=== PATIENT | male | born 1945 | race Caucasian/White ===

== ENCOUNTER 2018-02-16 07:48 | Inpatient (IN) | payer MEDICARE ==
[2018-02-11 11:01] LABS: CLARITY,URINE CLEAR (Clear); COLOR,URINE YELLOW (Yellow); GLUCOSE, URINE NEGATIVE (Neg); KETONES,URINE NEGATIVE (Neg); LEUKOCYTE ESTERASE ,URINE NEGATIVE (Neg); NITRITES, URINE NEGATIVE (Neg); OCCULT BLOOD,URINE NEGATIVE (Neg); PROTEIN,URINE NEGATIVE (Neg); UA COLLECTION TYPE NON-SPECIFIED; UROBILINOGEN,URINE 0.2 E.U/dL (0.2-1.0)
[2018-02-11 11:04] LABS: BASOPHILS % (AUTO) 0.5 % (0-1); EOSINOPHILS # (AUTO) 0.2 X10'3 (0-0.9); EOSINOPHILS % (AUTO) 2.5 % (0-6); LYMPHOCYTES # (AUTO) 2.5 X10'3 (1.1-4.8); LYMPHOCYTES % (AUTO) 25.9 % (21-51); MEAN CORPUSCULAR HEMOGLOBIN 30.8 PG (27.0-31.0); MEAN CORPUSCULAR HGB CONC 33.8 % (33.0-36.5); MEAN CORPUSCULAR VOLUME 90.9 FL (78-98); MEAN PLATELET VOLUME 7.6 FL (7.4-10.4); MONOCYTES # (AUTO) 0.9 X10'3 (0-0.9); MONOCYTES % (AUTO) 9.4 % (2-12); NEUTROPHILS % (AUTO) 61.7 % (42-75); PRE OP HEMATOCRIT 48.3 % (42.0-52.0); PRE OP HEMOGLOBIN 16.3 g/dL (14.0-17.9); PRE OP PLATELET COUNT 193 X10'3 (140-440); RED BLOOD COUNT 5.31 X10'6 (4.70-6.10); RED CELL DISTRIBUTION WIDTH 13.8 % (11.5-14.5)
[2018-02-11 11:16] LABS: PRE OP INR 0.9 INR; PRE OP PROTIME 9.6 SECONDS (9.0-12.0)
[2018-02-11 11:21] LABS: ALBUMIN 3.6 G/DL (3.4-5.0); ALBUMIN/GLOBULIN RATIO 0.9 (1.1-1.5); ALKALINE PHOSPHATASE 89 IU/L (46-116); BLOOD UREA NITROGEN 14 MG/DL (7-18); BUN/CREATININE RATIO 16.3 (5.4-32.0); CHLORIDE 103 MMOL/L (99-107); CREATININE 0.86 MG/DL (0.60-1.10); PRE OP ALT 57 U/L (30-65); PRE OP ANION GAP 12 (8-16); PRE OP AST 13 U/L (10-37); PRE OP BILIRUB, TOTAL 0.4 MG/DL (0.0-1.0); PRE OP GLUCOSE 104 MG/DL (70-104); PRE OP POTASSIUM 4.3 MMOL/L (3.4-5.1); PRE OP SODIUM 140 MMOL/L (135-145); TOTAL PROTEIN 7.4 G/DL (6.4-8.2); eGFR 88 ML/MIN
[2018-02-16] VITALS (16 sets, daily range): BP systolic 76–149; BP diastolic 42–85
[~2018-02-16] VITALS: Ht 177.8 cm; Wt 93.8 kg
[~2018-02-16 07:48] MED LIST: ASPI-1264 PO; ATEN-169 PO; DOCUMENT DATE & TIME OF BETA-BLOCKER PO ONE; MULT-1179 PO; SIMV20TA5 PO; cefazolin/dext.iso 2gm/100 ML IV ONE; famotidine 20mg tablet PO ONE; ringers solution, lacted 1,000 ML IV SCH
[2018-02-16] MEDS ORDERED: heparin 10,000 units/1 ML INJ ONE (09:23)
[2018-02-16] MEDS ORDERED: ceFAZolin 1000mg inj ONE (09:23)
[2018-02-16] MEDS ORDERED: iohexol 350MG/ML 100ml bottle IV ONE (10:17)
[2018-02-16] MEDS ORDERED: iohexol 350 MG/ML 50ML vial IV ONE (10:18)
[2018-02-16] MEDS ORDERED: LIDOcaine 1%/PF 5ML 10 MG/ML VIAL ONE (11:44)
[2018-02-16] MEDS ORDERED: iohexol 300mg/ml 100ml inj. ONE (11:44)
[2018-02-16] MEDS ORDERED: heparin 1,000 UNITS/NS 500ml 500 ML ONE (11:53)
[2018-02-16] MEDS ORDERED: midazolam 2 mg/2 ml injection ONE ×2 (11:53→13:50)
[2018-02-16] MEDS ORDERED: fentaNYL/PF 50MCG/1 ML 2ML syringe ONE ×2 (11:53→15:50)
[2018-02-16] MEDS ORDERED: propofol inj 20 ML IV ONE (13:50)
[2018-02-16] MEDS ORDERED: rocuronium 10mg/ml inj IV ONE (13:50)
[2018-02-16] MEDS ORDERED: fentaNYL /PF 50mcg/ml 5ml ampule ONE (13:50)
[2018-02-16] MEDS ORDERED: sevoflurane 250ml liquid IH ONE (13:53)
[2018-02-16] MEDS ORDERED: ringers solution, lacted 1,000 ML IV SCH (14:46)
[2018-02-16] MEDS ORDERED: morphine 4 MG/ML inj SYRINge IV PRN ×2 (14:50)
[2018-02-16] MEDS ORDERED: ondansetron/PF 4mg/2ml inj IV PRN ×2 (14:50→18:05)
[2018-02-16] MEDS ORDERED: labetalol 20mg/4ml (5mg/ml) syringe IV PRN (14:50)
[2018-02-16] MEDS ORDERED: proCHLORperazine 10 MG/2 ml inj IV PRN (14:50)
[2018-02-16] MEDS ORDERED: meperidine/PF 25mg/ml syringe IV PRN ×3 (14:50)
[2018-02-16] MEDS ORDERED: heparin 1,000unit/ml 10ml vial 10 ML ONE (15:49)
[2018-02-16] MEDS ORDERED: HYDROcodone/acetaminophen 10/325mg tab PO PRN (18:05)
[2018-02-16] MEDS ORDERED: diphenhydrAMINE 25mg capsule PO PRN (18:05)
[2018-02-16] MEDS: normal saline 1000ml 1,000 ML IV SCH (19:15)
[2018-02-16] MEDS: HYDROcodone/acetaminophen 5mg/325mg tablet PO PRN (20:47)
[2018-02-16 20:57] LABS: BASOPHILS # (AUTO) 0.1 X10'3 (0-0.2); BASOPHILS % (AUTO) 0.3 % (0-1); EOSINOPHILS # (AUTO) 0.4 X10'3 (0-0.9); EOSINOPHILS % (AUTO) 1.6 % (0-6); HEMATOCRIT 39.8 % (42.0-52.0); HEMOGLOBIN 13.3 g/dl (14.0-17.9); LYMPHOCYTES # (AUTO) 1.6 X10'3 (1.1-4.8); LYMPHOCYTES % (AUTO) 6.9 % (21-51); MEAN CORPUSCULAR HEMOGLOBIN 30.5 PG (27.0-31.0); MEAN CORPUSCULAR HGB CONC 33.5 % (33.0-36.5); MONOCYTES # (AUTO) 1.5 X10'3 (0-0.9); MONOCYTES % (AUTO) 6.3 % (2-12); NEUTROPHILS # (AUTO) 19.7 X10'3 (1.8-7.7); NEUTROPHILS % (AUTO) 84.9 % (42-75); PLATELET COUNT 204 X10'3 (140-440); RED BLOOD COUNT 4.37 X10'6 (4.70-6.10); RED CELL DISTRIBUTION WIDTH 13.7 % (11.5-14.5); WHITE BLOOD COUNT 23.3 X10'3 (4.5-11.0)
[2018-02-16 21:43] LABS: ALBUMIN 2.8 G/DL (3.4-5.0); ANION GAP 11 (8-16); BLOOD UREA NITROGEN 15 MG/DL (7-18); BUN/CREATININE RATIO 15.6 (5.4-32.0); CALCIUM 7.9 MG/DL (8.5-10.1); CHLORIDE 106 MMOL/L (99-107); CREATININE 0.96 MG/DL (0.60-1.10); GLUCOSE 134 MG/DL (70-104); MAGNESIUM 1.8 MG/DL (1.5-2.4); POTASSIUM 4.5 MMOL/L (3.5-5.1); SODIUM 140 MMOL/L (135-145); TOTAL CARBON DIOXIDE 23.4 MMOL/L (24-32); eGFR 77 ML/MIN
[2018-02-16] MEDS: atorvastatin 10mg tablet PO SCH (23:08)
[2018-02-17] VITALS (20 sets, daily range): BP systolic 89–169; BP diastolic 48–76
[2018-02-17] MEDS: HYDROcodone/acetaminophen 5mg/325mg tablet PO PRN ×4 (01:05→15:03)
[2018-02-17] MEDS: normal saline 1000ml 1,000 ML IV SCH ×2 (03:15→15:21)
[2018-02-17 03:43] LABS: BASOPHILS % (AUTO) 0.1 % (0-1); EOSINOPHILS # (AUTO) 0.2 X10'3 (0-0.9); EOSINOPHILS % (AUTO) 1.3 % (0-6); HEMATOCRIT 36.1 % (42.0-52.0); HEMOGLOBIN 12.1 g/dl (14.0-17.9); LYMPHOCYTES # (AUTO) 1.2 X10'3 (1.1-4.8); LYMPHOCYTES % (AUTO) 7.1 % (21-51); MEAN CORPUSCULAR HEMOGLOBIN 30.6 PG (27.0-31.0); MEAN CORPUSCULAR HGB CONC 33.5 % (33.0-36.5); MEAN CORPUSCULAR VOLUME 91.3 FL (78-98); MEAN PLATELET VOLUME 8.4 FL (7.4-10.4); MONOCYTES # (AUTO) 1.1 X10'3 (0-0.9); MONOCYTES % (AUTO) 6.3 % (2-12); NEUTROPHILS # (AUTO) 14.9 X10'3 (1.8-7.7); NEUTROPHILS % (AUTO) 85.2 % (42-75); PLATELET COUNT 194 X10'3 (140-440); RED BLOOD COUNT 3.96 X10'6 (4.70-6.10); RED CELL DISTRIBUTION WIDTH 13.6 % (11.5-14.5); WHITE BLOOD COUNT 17.5 X10'3 (4.5-11.0)
[2018-02-17] MEDS: multivitamins, therapeutics tablet PO SCH (08:00)
[2018-02-17] MEDS: atenolol 50mg tablet PO SCH (08:00)
[2018-02-17] MEDS: aspirin 81mg tablet.DR PO SCH (08:28)
[2018-02-17] MEDS: HYDROcodone/acetaminophen 10/325mg tab PO PRN (20:04)
[2018-02-17] MEDS: atorvastatin 10mg tablet PO SCH (21:24)
[2018-02-18] VITALS: BP 126/68
[2018-02-18] MEDS: HYDROcodone/acetaminophen 10/325mg tab PO PRN ×3 (03:04→11:36)
[2018-02-18] MEDS: normal saline 1000ml 1,000 ML IV SCH (05:33)
[2018-02-18] MEDS: atenolol 50mg tablet PO SCH (07:18)
[2018-02-18] MEDS: multivitamins, therapeutics tablet PO SCH (07:18)
[2018-02-18] MEDS: aspirin 81mg tablet.DR PO SCH (07:19)
[2018-02-18 07:50] VITALS: BP 129/65
[2018-02-18 11:00] VITALS: BP 129/60
== END 2018-02-18 11:50 | disposition home or self-care (01) | DRG 253 ==
LOC: PAS IN 07:48 → EDSTATUS 09:00 → CICU 2S 18:40 → SUR 3N 02-17 19:30
PROVIDERS: ADMIT Surgery; ATTEND Surgery
PROC: B42 Imaging, Lower Arteries, Computerized Tomography (CT Scan) (ICD-10-PCS; 2018-02-16)
PROC: 06BP0ZZ Excision of Right Saphenous Vein, Open Approach (ICD-10-PCS; 2018-02-16)
PROC: B41G1ZZ Fluoroscopy of Left Lower Extremity Arteries using Low Osmolar Contrast (ICD-10-PCS; 2018-02-16)
PROC: B41F1ZZ Fluoroscopy of Right Lower Extremity Arteries using Low Osmolar Contrast (ICD-10-PCS; 2018-02-16)
PROC: 041K09L Bypass Right Femoral Artery to Popliteal Artery with Autologous Venous Tissue, Open Approach (ICD-10-PCS; principal; 2018-02-16 13:53)
DX: I70.213 Atherosclerosis of native arteries of extremities with intermittent claudication, bilateral legs (principal); D62 Acute posthemorrhagic anemia; I71.4 Abdominal aortic aneurysm, without rupture; I10 Essential (primary) hypertension; I25.10 Atherosclerotic heart disease of native coronary artery without angina pectoris; Z95.5 Presence of coronary angioplasty implant and graft; Z87.891 Personal history of nicotine dependence; Z82.3 Family history of stroke; Z80.9 Family history of malignant neoplasm, unspecified
CPT/HCPCS: 36246; 36415; 71046; 75635; 75710; 75736; 76937; 80048; 80053; 81003; 83735; 85025; 85610; 85730; 86885; 86900; 86901; 86920; 87070; 93005; 93926; 93971; 99152; 99153; A7000; C1758; C1769; C1894; G0378; J0690; J1644; J2001; J2250; J2704; J3010; J7030; J7120; Q9967

== ENCOUNTER 2023-03-02 09:31 | Outpatient (CLI) | payer MEDICARE ==
[~2023-03-02 09:31] MED LIST changes: -DOCUMENT DATE & TIME OF BETA-BLOCKER PO ONE; +SIMV-42 PO; -SIMV20TA5 PO; -cefazolin/dext.iso 2gm/100 ML IV ONE; -famotidine 20mg tablet PO ONE; -ringers solution, lacted 1,000 ML IV SCH
[2023-03-02 11:21] LABS: ALBUMIN 2.9 G/DL (3.4-5.0); ANION GAP 7 (8-16); BLOOD UREA NITROGEN 11 MG/DL (7-18); BUN/CREATININE RATIO 8.9 (10.0-20.0); CALCIUM 9.6 MG/DL (8.5-10.1); CHLORIDE 102 MMOL/L (99-107); CREATININE 1.23 MG/DL (0.60-1.10); GLUCOSE 115 MG/DL (70-104); POTASSIUM 3.7 MMOL/L (3.5-5.1); SODIUM 138 MMOL/L (135-145); TOTAL CARBON DIOXIDE 28.7 MMOL/L (24-32); eGFR 57 ML/MIN
[2023-03-02] MEDS ORDERED: iohexol 350MG/ML 100ml bottle IV ONE (11:31)
[2023-03-02] MEDS ORDERED: iohexol 350 MG/ML 50ML vial IV ONE (11:31)
== END 2023-03-02 23:59 | disposition home or self-care (01) ==
LOC: RAD 09:31
PROVIDERS: ATTEND Internal Medicine Interventional Cardiology
DX: I70.213 Atherosclerosis of native arteries of extremities with intermittent claudication, bilateral legs (principal); I65.23 Occlusion and stenosis of bilateral carotid arteries; I71.40 Abdominal aortic aneurysm, without rupture, unspecified; I25.10 Atherosclerotic heart disease of native coronary artery without angina pectoris; M51.36 Other intervertebral disc degeneration, lumbar region; I10 Essential (primary) hypertension; K57.30 Diverticulosis of large intestine without perforation or abscess without bleeding
CPT/HCPCS: 36415; 75635; 80048; J3490; Q9967

== ENCOUNTER 2023-03-17 05:30 | Inpatient (IN) | payer MEDICARE ==
[2023-03-15 09:53] LABS: BASOPHILS # (AUTO) 0.1 X10'3 (0-0.2); BASOPHILS % (AUTO) 0.7 % (0-1); BILIRUBIN,URINE SMALL (Neg); CLARITY,URINE SLIGHTLY CLOUDY (Clear); COLOR,URINE YELLOW (Yellow); EOSINOPHILS # (AUTO) 0.1 X10'3 (0-0.9); EOSINOPHILS % (AUTO) 1.2 % (0-6); GLUCOSE, URINE NEGATIVE (Neg); KETONES,URINE TRACE mg/dl (Neg); LEUKOCYTE ESTERASE ,URINE NEGATIVE (Neg); LYMPHOCYTES # (AUTO) 1.4 X10'3 (1.1-4.8); LYMPHOCYTES % (AUTO) 12.8 % (21-51); MEAN CORPUSCULAR HEMOGLOBIN 27.9 PG (27.0-31.0); MEAN CORPUSCULAR HGB CONC 33.4 g/dL (33.0-36.5); MEAN CORPUSCULAR VOLUME 83.6 FL (78-98); MEAN PLATELET VOLUME 7.3 FL (7.4-10.4); MONOCYTES # (AUTO) 1.2 X10'3 (0-0.9); MONOCYTES % (AUTO) 11.7 % (2-12); NEUTROPHILS # (AUTO) 7.8 X10'3 (1.8-7.7); NEUTROPHILS % (AUTO) 73.6 % (42-75); NITRITES, URINE NEGATIVE (Neg); OCCULT BLOOD,URINE NEGATIVE (Neg); PH,URINE 5.5 (4.8-8.0); PRE OP HEMATOCRIT 38.6 % (42.0-52.0); PRE OP HEMOGLOBIN 12.9 g/dL (14.0-17.9); PRE OP PLATELET COUNT 238 X10'3 (140-440); PRE OP WHITE BLOOD COUNT 10.5 10'3 (4.8-10.8); PROTEIN,URINE TRACE mg/dl (Neg); RED BLOOD COUNT 4.62 X10'6 (4.70-6.10); RED CELL DISTRIBUTION WIDTH 14.7 % (11.5-14.5)
[2023-03-15 09:58] LABS: UA COLLECTION TYPE CLN CATCH MIDSTREAM
[2023-03-15 10:00] LABS: CAL OXALATE CRYSTALS 1+ /HPF (NEGATIVE)
[2023-03-15 10:01] LABS: BACTERIA,URINE NONE SEEN /HPF (Neg); MUCUS STRANDS MODERATE /LPF (Neg); RBC,URINE NONE SEEN /HPF (0-2); SQUAMOUS EPITHELIAL CELL,UR FEW /LPF (FEW); WBC,URINE 0-4 /HPF (0-4)
[2023-03-15 10:06] LABS: ALBUMIN 2.9 G/DL (3.4-5.0); ALBUMIN/GLOBULIN RATIO 0.7 (1.1-1.5); ALKALINE PHOSPHATASE 83 IU/L (46-116); BLOOD UREA NITROGEN 10 MG/DL (7-18); BUN/CREATININE RATIO 8.8 (10.0-20.0); CALCIUM 8.9 MG/DL (8.5-10.1); CHLORIDE 102 MMOL/L (99-107); CREATININE 1.13 MG/DL (0.60-1.10); PRE OP ALT 27 U/L (30-65); PRE OP ANION GAP 7 (8-16); PRE OP AST 15 U/L (10-37); PRE OP BILIRUB, TOTAL 0.4 MG/DL (0.0-1.0); PRE OP GLUCOSE 108 MG/DL (70-104); PRE OP SODIUM 137 MMOL/L (135-145); TOTAL CARBON DIOXIDE 27.9 MMOL/L (24-32); eGFR 63 ML/MIN
[2023-03-17] VITALS (23 sets, daily range): BP systolic 138–212; BP diastolic 63–106; PULSE 72–96; RESP 14–34; TEMP 97.1–98.9; O2SAT 72–100
[~2023-03-17] VITALS: Ht 177.8 cm; Wt 74.4 kg
[~2023-03-17 05:30] MED LIST changes: -ASPI-1264 PO; +CLOP75TA33 PO; +FINA5TAB11 PO; +MULT-1085 PO; -MULT-1179 PO; +RIVA20TA PO; -SIMV-42 PO; +TRAM50TA2 PO; +[UNRECOGNIZED DRUG - OTHER] PO; +famotidine 20mg tablet PO ONE; +ringers solution, lacted 1,000 ML IV SCH
--- NOTE | 2023-03-17 05:30 | NUR ---
BILATERAL PEDAL PULSES AND POSTERIOR TIBIAL PULSES DOPPLERED AND MARKED WITH SKIN MARKER WITH AN X.
[2023-03-17] MEDS ORDERED: cefazolin 2gm/D5W 100mL 100 ML IV ONE (06:00)
[2023-03-17] MEDS ORDERED: heparin 10,000 units/1 ML INJ ONE (06:58)
[2023-03-17] MEDS ORDERED: LIDOcaine 1% (10mg/ml)w/preservative inj. 20ml MDV ONE (07:00)
[2023-03-17] MEDS ORDERED: fentaNYL /PF 50mcg/ml 5ml ampule ONE ×2 (07:24→09:16)
[2023-03-17] MEDS ORDERED: midazolam 1 mg/ML 2ml injection ONE (07:24)
[2023-03-17] MEDS ORDERED: propofol inj 20 ML IV ONE (07:25)
[2023-03-17] MEDS ORDERED: rocuronium 10mg/ml inj IV ONE (07:29)
[2023-03-17] MEDS ORDERED: dexamethasone sod phosphate 10mg/ml inj ONE (07:52)
[2023-03-17] MEDS ORDERED: sevoflurane 250ml liquid IH ONE (07:52)
[2023-03-17] MEDS ORDERED: labetalol 20mg/4ml (5mg/ml) syringe IV ONE (07:52)
[2023-03-17] MEDS ORDERED: ondansetron/PF 4mg/2ml inj ONE (07:52)
[2023-03-17] MEDS ORDERED: LIDOcaine 2% jelly 6ml syringe ***for topical use only ONE (08:15)
[2023-03-17] MEDS ORDERED: ondansetron/PF 4mg/2ml inj IV PRN ×2 (09:20→13:45)
[2023-03-17] MEDS ORDERED: proCHLORperazine 10 MG/2 ml inj IV PRN (09:20)
[2023-03-17] MEDS ORDERED: ringers solution, lacted 1,000 ML IV SCH (09:20)
[2023-03-17] MEDS ORDERED: meperidine/PF 25mg/ml syringe IV PRN ×2 (09:20)
[2023-03-17] MEDS ORDERED: morphine 2 MG/ML inj. syringe IV PRN ×2 (09:20→13:45)
[2023-03-17] MEDS ORDERED: mupirocin 2% ointment 22GM ONE (10:59)
[2023-03-17] MEDS ORDERED: bacitracin 15gm ointment TP ONE (10:59)
--- NOTE | 2023-03-17 11:19 | NUR ---
Received from OR via BED, accompanied by Anesthesiologist DR SANCHEZ and report given by Anesthesiologist AND CIVIL ENGINEERING INTERN. PT DROWSY, DENIES PAIN. LEFT GROIN W/PREVENA DRSG CDI W/GREEN LIGHT ILLUMINATION, LEFT LEG W/2 MEDIAL ISLAND DRSG'S FROM THIGH TO LOWER CALF W/A FEW AREAS OF SCANT AMT OF SANGUINOUS DRAINAGE. PT PAINFUL, UNABLE TO DESCRIBE, 4 MG MORPHINE GIVEN, W/5 MG LABETALOL FOR ELEVATED BP. Addendum: 03/17/23 at 1145 by Sindy Hawkins RN Amended: Links added.
[2023-03-17] MEDS: morphine 4 MG/ML inj SYRINge IV PRN ×2 (11:26→11:47)
[2023-03-17] MEDS: labetalol 20mg/4ml (5mg/ml) syringe IV PRN ×3 (11:33→12:03)
[2023-03-17] MEDS ORDERED: hydrALAZINE 20mg/ml inj. IV ONE (12:03)
[2023-03-17] MEDS: hydrALAZINE 20mg/ml inj. IV PRN ×2 (12:05→12:24)
[2023-03-17] MEDS: meperidine/PF 25mg/ml syringe IV PRN ×2 (13:20→15:01)
[2023-03-17] MEDS ORDERED: magnesium hydroxide 30ml (MOM) UD suspension PO PRN (13:45)
[2023-03-17] MEDS ORDERED: magnesium 4gm in 100ml NS 100 ML IV PRN (13:45)
[2023-03-17] MEDS ORDERED: mag hydrox/Alum hydrox/simeth 30ml oral suspension PO PRN (13:45)
[2023-03-17] MEDS ORDERED: potassium Cl 20 mEq SR tablet PO PRN (13:45)
[2023-03-17] MEDS ORDERED: HYDROcodone/acetaminophen 5mg/325mg tablet PO PRN (13:45)
[2023-03-17] MEDS ORDERED: magnesium Cl slow-release 64mg tablet PO PRN (13:45)
[2023-03-17] MEDS ORDERED: magnesium 2GM in 50ml NS 50 ML IV PRN (13:45)
[2023-03-17] MEDS ORDERED: potassium Cl 40MEQ/1/2NS 520ml 520 ML IV PRN (13:45)
[2023-03-17] MEDS ORDERED: traMADol 50MG tablet PO PRN (14:00)
--- NOTE | 2023-03-17 16:19 | NUR ---
Report called to receiving nurse PT STATES HIS PAIN IS MUCH BETTER. GROIN SITE, DRSG'S REMAIN W/O ANY CHANGES. TIBIAL/PEDAL PULSES REMAINS 2+ DOPPLER W/BILAT FEET PWD, SUPERVISOR WOUND 1-2 SECONDS. Transferred via BED W/2 BAGS OF Belongings W/DENTURES IN PTS MOUTH ON TELE #5. Special Issues communicated to receiving nurse. YES. Addendum: 03/17/23 at 1637 by Sindy Hawkins RN Amended: Links added.
[2023-03-17] MEDS ORDERED: rivaroxaban 20mg tablet PO SCH (17:00)
[2023-03-17] MEDS: HYDROcodone/acetaminophen 10/325mg tab PO PRN ×2 (17:03→23:21)
[2023-03-17] MEDS: normal saline 1000ml 1,000 ML IV SCH (17:09)
--- NOTE | 2023-03-17 18:22 | NUR ---
Problems reprioritized. Patient report given, questions answered & plan of care reviewed with Kristie. Addendum: 03/17/23 at 1823 by Percy Lund RN Amended: Links added.
[2023-03-17] MEDS: K and/or MAG REPLACEMENT MC SCH (20:00)
[2023-03-17] MEDS: docusate sod 100mg capsule PO SCH (20:25)
[2023-03-17] MEDS: atenolol 50mg tablet PO SCH (20:25)
[2023-03-17] MEDS: morphine 2 MG/ML inj. syringe IV PRN (20:26)
[2023-03-18] VITALS (7 sets, daily range): BP systolic 119–176; BP diastolic 52–80; PULSE 58–82; RESP 12–22; TEMP 97.7–98.4; O2SAT 96–100
[2023-03-18] MEDS: HYDROcodone/acetaminophen 10/325mg tab PO PRN ×4 (04:51→14:40)
[2023-03-18] MEDS: normal saline 1000ml 1,000 ML IV SCH ×2 (04:52→14:36)
--- NOTE | 2023-03-18 06:38 | NUR ---
Problems reprioritized. Patient report given, questions answered & plan of care reviewed with Suzan BARRY. Pt stable at shift change.
[2023-03-18 07:03] LABS: BASOPHILS % (AUTO) 0.1 % (0-1); EOSINOPHILS % (AUTO) 0.2 % (0-6); HEMATOCRIT 31.6 % (42.0-52.0); HEMOGLOBIN 10.2 g/dl (14.0-17.9); LYMPHOCYTES # (AUTO) 1.5 X10'3 (1.1-4.8); LYMPHOCYTES % (AUTO) 11.8 % (21-51); MEAN CORPUSCULAR HEMOGLOBIN 27.3 PG (27.0-31.0); MEAN CORPUSCULAR HGB CONC 32.3 g/dL (33.0-36.5); MEAN CORPUSCULAR VOLUME 84.4 FL (78-98); MEAN PLATELET VOLUME 7.1 FL (7.4-10.4); MONOCYTES # (AUTO) 1.5 X10'3 (0-0.9); MONOCYTES % (AUTO) 11.8 % (2-12); NEUTROPHILS # (AUTO) 9.8 X10'3 (1.8-7.7); NEUTROPHILS % (AUTO) 76.1 % (42-75); PLATELET COUNT 200 X10'3 (140-440); RED BLOOD COUNT 3.75 X10'6 (4.70-6.10); RED CELL DISTRIBUTION WIDTH 14.7 % (11.5-14.5); WHITE BLOOD COUNT 12.9 X10'3 (4.5-11.0)
[2023-03-18 07:43] LABS: ALANINE AMINOTRANSFERASE 18 U/L (12-78); ALBUMIN 2.3 G/DL (3.4-5.0); ALBUMIN/GLOBULIN RATIO 0.7 (1.1-1.5); ALKALINE PHOSPHATASE 67 IU/L (46-116); ANION GAP 6 (8-16); ASPARTATE AMINO TRANSFERASE 9 U/L (10-37); BILIRUBIN,TOTAL 0.4 MG/DL (0.1-1.0); BLOOD UREA NITROGEN 11 MG/DL (7-18); BUN/CREATININE RATIO 10.8 (10.0-20.0); CALCIUM 8.5 MG/DL (8.5-10.1); CHLORIDE 103 MMOL/L (99-107); CREATININE 1.02 MG/DL (0.60-1.10); GLUCOSE 115 MG/DL (70-104); POTASSIUM 4.4 MMOL/L (3.5-5.1); SODIUM 135 MMOL/L (135-145); TOTAL CARBON DIOXIDE 25.8 MMOL/L (24-32); TOTAL PROTEIN 5.7 G/DL (6.4-8.2); eCRCL 64 ML/MIN; eGFR 71 ML/MIN
[2023-03-18] MEDS: K and/or MAG REPLACEMENT MC SCH ×2 (07:47→20:00)
[2023-03-18] MEDS ORDERED: [UNRECOGNIZED DRUG - OTHER] PO SCH (08:00)
[2023-03-18] MEDS: docusate sod 100mg capsule PO SCH ×2 (09:09→20:46)
[2023-03-18] MEDS: clopidogrel 75mg tablet PO SCH (09:09)
[2023-03-18] MEDS: multivitamins, therapeutics tablet PO SCH (09:09)
[2023-03-18] MEDS: finasteride 5mg tablet PO SCH (09:32)
[2023-03-18] MEDS: morphine 2 MG/ML inj. syringe IV PRN ×2 (16:30→20:48)
[2023-03-18] MEDS ORDERED: rivaroxaban 20mg tablet PO SCH (17:00)
--- NOTE | 2023-03-18 19:00 | NUR ---
Patient in room PCU 3025. I have received report from Suzan BARRY and had the opportunity to ask questions and assume patient care.
[2023-03-18] MEDS: atenolol 50mg tablet PO SCH (20:48)
[2023-03-19] MEDS: morphine 2 MG/ML inj. syringe IV PRN ×2 (00:58→08:19)
[2023-03-19] MEDS: normal saline 1000ml 1,000 ML IV SCH (01:02)
[2023-03-19] MEDS: acetaminophen 325mg tablet PO PRN ×2 (01:02→08:16)
[2023-03-19 02:00] VITALS: BP 148/69; PULSE 72; RESP 23; TEMP 98.5; O2SAT 96
[2023-03-19] MEDS: HYDROcodone/acetaminophen 10/325mg tab PO PRN (05:47)
--- NOTE | 2023-03-19 05:56 | NUR ---
D/c'd patients kam catheter per MD order at 0545. Patient tolerated procedure well, and now has a urinal at bedside.
[2023-03-19 06:00] VITALS: BP 152/83; PULSE 76; RESP 11; TEMP 97.7; O2SAT 95
--- NOTE | 2023-03-19 06:19 | NUR ---
Problems reprioritized. Patient report given, questions answered & plan of care reviewed with Suzan BARRY.
[2023-03-19] MEDS: K and/or MAG REPLACEMENT MC SCH (06:57)
[2023-03-19 07:27] LABS: BASOPHILS % (AUTO) 0.5 % (0-1); EOSINOPHILS # (AUTO) 0.1 X10'3 (0-0.9); EOSINOPHILS % (AUTO) 0.8 % (0-6); HEMATOCRIT 30.9 % (42.0-52.0); LYMPHOCYTES % (AUTO) 10.7 % (21-51); MEAN CORPUSCULAR HEMOGLOBIN 27.3 PG (27.0-31.0); MEAN CORPUSCULAR HGB CONC 32.5 g/dL (33.0-36.5); MEAN CORPUSCULAR VOLUME 83.9 FL (78-98); MEAN PLATELET VOLUME 7.2 FL (7.4-10.4); MONOCYTES # (AUTO) 1.2 X10'3 (0-0.9); MONOCYTES % (AUTO) 12.6 % (2-12); NEUTROPHILS # (AUTO) 7.3 X10'3 (1.8-7.7); NEUTROPHILS % (AUTO) 75.4 % (42-75); PLATELET COUNT 192 X10'3 (140-440); RED BLOOD COUNT 3.68 X10'6 (4.70-6.10); RED CELL DISTRIBUTION WIDTH 15.1 % (11.5-14.5); WHITE BLOOD COUNT 9.7 X10'3 (4.5-11.0)
[2023-03-19 07:47] LABS: ALANINE AMINOTRANSFERASE 16 U/L (12-78); ALBUMIN 2.2 G/DL (3.4-5.0); ALBUMIN/GLOBULIN RATIO 0.6 (1.1-1.5); ALKALINE PHOSPHATASE 66 IU/L (46-116); ANION GAP 7 (8-16); ASPARTATE AMINO TRANSFERASE 12 U/L (10-37); BILIRUBIN,TOTAL 0.4 MG/DL (0.1-1.0); BLOOD UREA NITROGEN 10 MG/DL (7-18); BUN/CREATININE RATIO 10.3 (10.0-20.0); CALCIUM 8.2 MG/DL (8.5-10.1); CHLORIDE 103 MMOL/L (99-107); CREATININE 0.97 MG/DL (0.60-1.10); GLUCOSE 107 MG/DL (70-104); MAGNESIUM 1.9 MG/DL (1.5-2.4); POTASSIUM 3.8 MMOL/L (3.5-5.1); SODIUM 135 MMOL/L (135-145); TOTAL CARBON DIOXIDE 25.4 MMOL/L (24-32); TOTAL PROTEIN 5.6 G/DL (6.4-8.2); eCRCL 67 ML/MIN; eGFR 75 ML/MIN
[2023-03-19] MEDS: docusate sod 100mg capsule PO SCH (08:00)
[2023-03-19] MEDS: clopidogrel 75mg tablet PO SCH (08:17)
[2023-03-19] MEDS: multivitamins, therapeutics tablet PO SCH (08:17)
[2023-03-19 11:00] VITALS: BP 176/82; PULSE 67; RESP 11; TEMP 97.4; O2SAT 98
[2023-03-19] MEDS ORDERED: oxyCODONE/APAP 5-325mg tablet PO PRN (11:30)
[2023-03-19] MEDS ORDERED: PER5325T PO (11:34)
[2023-03-19 12:07] VITALS: RESP 16
[2023-03-19] MEDS: finasteride 5mg tablet PO SCH (12:22)
--- NOTE | 2023-03-19 12:40 | NUR ---
Discharged to the care of family. Has written instructions and understands that his follow up appointment with Dr. Hester will be made for next week. Pain control instructions given. Abiola Cristobal has pain medications filled and available for black pickler. Dressings are intact. Stable for discharge.
== END 2023-03-19 12:42 | disposition home or self-care (01) | DRG 254 ==
LOC: PAS IN 05:30 → PCU 3S 16:23
PROVIDERS: ADMIT Surgery; ATTEND Surgery
PROC: 03CJ0ZZ Extirpation of Matter from Left Common Carotid Artery, Open Approach (ICD-10-PCS; 2023-03-17)
PROC: 04PY0DZ Removal of Intraluminal Device from Lower Artery, Open Approach (ICD-10-PCS; 2023-03-17)
PROC: 041L0JJ Bypass Left Femoral Artery to Left Femoral Artery with Synthetic Substitute, Open Approach (ICD-10-PCS; principal; 2023-03-17 07:52)
DX: I70.212 Atherosclerosis of native arteries of extremities with intermittent claudication, left leg (principal); F17.210 Nicotine dependence, cigarettes, uncomplicated; Z82.49 Family history of ischemic heart disease and other diseases of the circulatory system; Z80.9 Family history of malignant neoplasm, unspecified
CPT/HCPCS: 36415; 80053; 81001; 82948; 83735; 85025; 86885; 86900; 86901; 87070; 87075; 87081; 87102; A4615; A4618; A6258; A6449; A7000; C1758; C1768; J0360; J0690; J1100; J1644; J2175; J2250; J2270; J2405; J2704; J3010; J3490; J7030; J7040; J7120

== ENCOUNTER 2023-04-06 10:02 | Emergency (ER) | payer MEDICARE ==
[~2023-04-06] VITALS: Ht 177.8 cm; Wt 74.0 kg
[~2023-04-06 10:02] MED LIST changes: +PER5325T PO; -TRAM50TA2 PO; -famotidine 20mg tablet PO ONE; -ringers solution, lacted 1,000 ML IV SCH
[2023-04-06 10:55] LABS: ALANINE AMINOTRANSFERASE 47 U/L (12-78); ALBUMIN 2.6 G/DL (3.4-5.0); ALBUMIN/GLOBULIN RATIO 0.7 (1.1-1.5); ALKALINE PHOSPHATASE 105 IU/L (46-116); ANION GAP 8 (8-16); ASPARTATE AMINO TRANSFERASE 33 U/L (10-37); BILIRUBIN,TOTAL 0.6 MG/DL (0.1-1.0); BLOOD UREA NITROGEN 18 MG/DL (7-18); BUN/CREATININE RATIO 11.9 (10.0-20.0); CALCIUM 8.3 MG/DL (8.5-10.1); CHLORIDE 103 MMOL/L (99-107); CREATININE 1.51 MG/DL (0.60-1.10); GLUCOSE 149 MG/DL (70-104); POTASSIUM 3.5 MMOL/L (3.5-5.1); SODIUM 138 MMOL/L (135-145); TOTAL CARBON DIOXIDE 26.7 MMOL/L (24-32); TOTAL PROTEIN 6.5 G/DL (6.4-8.2); eCRCL 42 ML/MIN; eGFR 45 ML/MIN
[2023-04-06 10:58] LABS: BASOPHILS # (AUTO) 0.1 X10'3 (0-0.2); BASOPHILS % (AUTO) 0.6 % (0-1); EOSINOPHILS # (AUTO) 0.1 X10'3 (0-0.9); EOSINOPHILS % (AUTO) 1.5 % (0-6); HEMATOCRIT 29.1 % (42.0-52.0); HEMOGLOBIN 9.6 g/dl (14.0-17.9); LYMPHOCYTES % (AUTO) 9.6 % (21-51); MEAN CORPUSCULAR HEMOGLOBIN 27.5 PG (27.0-31.0); MEAN CORPUSCULAR HGB CONC 32.9 g/dL (33.0-36.5); MEAN CORPUSCULAR VOLUME 83.3 FL (78-98); MEAN PLATELET VOLUME 6.9 FL (7.4-10.4); MONOCYTES # (AUTO) 1.1 X10'3 (0-0.9); MONOCYTES % (AUTO) 10.7 % (2-12); NEUTROPHILS % (AUTO) 77.6 % (42-75); PLATELET COUNT 289 X10'3 (140-440); RED BLOOD COUNT 3.49 X10'6 (4.70-6.10); RED CELL DISTRIBUTION WIDTH 16.4 % (11.5-14.5); WHITE BLOOD COUNT 10.3 X10'3 (4.5-11.0)
[2023-04-06 11:03] LABS: PRO BRAIN NATRIURETIC PEPTIDE 2603 PG/ML (0-450)
[2023-04-06 14:04] VITALS: BP 130/67; PULSE 66; RESP 16; TEMP 97.5; O2SAT 95
== END 2023-04-06 14:08 | disposition home or self-care (01) ==
LOC: ER 10:03
DX: R55 Syncope and collapse (principal)
CPT/HCPCS: 36415; 71045; 80053; 83880; 84484; 85025; 93005; 99285; A4615

== ENCOUNTER 2023-05-25 14:51 | Inpatient (IN) | payer MEDICARE ==
[~2023-05-25] VITALS: Ht 177.8 cm; Wt 71.3 kg
[2023-05-25] MEDS ORDERED: ipratropium/albuterol 3ml nebule NEB STA (15:08)
[2023-05-25 15:48] LABS: BASOPHILS # (AUTO) 0.1 X10'3 (0-0.2); BASOPHILS % (AUTO) 0.9 % (0-1); EOSINOPHILS # (AUTO) 0.1 X10'3 (0-0.9); EOSINOPHILS % (AUTO) 1.4 % (0-6); LYMPHOCYTES # (AUTO) 1.3 X10'3 (1.1-4.8); LYMPHOCYTES % (AUTO) 21.6 % (21-51); MEAN CORPUSCULAR VOLUME 68.9 FL (78-98); MEAN PLATELET VOLUME 7.2 FL (7.4-10.4); MONOCYTES # (AUTO) 0.6 X10'3 (0-0.9); MONOCYTES % (AUTO) 10.5 % (2-12); NEUTROPHILS % (AUTO) 65.6 % (42-75); PLATELET COUNT 260 X10'3 (140-440); RED BLOOD COUNT 3.07 X10'6 (4.70-6.10); WHITE BLOOD COUNT 6.2 X10'3 (4.5-11.0)
[2023-05-25 15:52] LABS: HEMATOCRIT 21.2 % (42.0-52.0); HEMOGLOBIN 6.1 g/dl (14.0-17.9)
[2023-05-25 15:53] LABS: APTT 23 SECONDS (22-32); PROTHROMBIN TIME 11.1 SECONDS (9.0-12.0)
[2023-05-25 15:54] LABS: ALANINE AMINOTRANSFERASE 14 U/L (12-78); ALBUMIN 3.2 G/DL (3.4-5.0); ALBUMIN/GLOBULIN RATIO 0.9 (1.1-1.5); ALKALINE PHOSPHATASE 72 IU/L (46-116); ANION GAP 10 (8-16); ASPARTATE AMINO TRANSFERASE 8 U/L (10-37); BILIRUBIN,TOTAL 0.6 MG/DL (0.1-1.0); BLOOD UREA NITROGEN 16 MG/DL (7-18); BUN/CREATININE RATIO 15.8 (10.0-20.0); CALCIUM 8.5 MG/DL (8.5-10.1); CHLORIDE 106 MMOL/L (99-107); CREATININE 1.01 MG/DL (0.60-1.10); GLUCOSE 132 MG/DL (70-104); POTASSIUM 3.5 MMOL/L (3.5-5.1); SODIUM 139 MMOL/L (135-145); TOTAL CARBON DIOXIDE 23.1 MMOL/L (24-32); TOTAL PROTEIN 6.7 G/DL (6.4-8.2); eCRCL 63 ML/MIN; eGFR 72 ML/MIN
[2023-05-25 16:03] LABS: MAGNESIUM 2.3 MG/DL (1.5-2.4); PRO BRAIN NATRIURETIC PEPTIDE 5661 PG/ML (0-450)
[2023-05-25 16:58] LABS: PLATELET ESTIMATE NORMAL
[2023-05-25 17:10] LABS: ANISOCYTOSIS 3+; HYPOCHROMASIA 2+; MICROCYTOSIS 2+
[2023-05-25 17:22] LABS: POLYCHROMASIA FEW
[2023-05-25 17:23] LABS: SCHISTOCYTES FEW
[2023-05-25] MEDS ORDERED: pantoprazole 40mg IV 80 MG in normal saline 100ml IV soln 100 ML IV ONE (19:40)
[2023-05-25] MEDS ORDERED: pantoprazole 40MG/NS 100ML BAG 100 ML IV ONE (19:40)
[2023-05-25] MEDS ORDERED: pantoprazole 40 MG vial IV ONE (20:15)
[2023-05-25] MEDS ORDERED: ondansetron/PF 4mg/2ml inj IV PRN (20:20)
[2023-05-25] MEDS ORDERED: magnesium Cl slow-release 64mg tablet PO PRN (20:20)
[2023-05-25] MEDS ORDERED: mag hydrox/Alum hydrox/simeth 30ml oral suspension PO PRN (20:20)
[2023-05-25] MEDS ORDERED: potassium Cl 20 mEq SR tablet PO PRN (20:20)
[2023-05-25] MEDS ORDERED: potassium Cl 40MEQ/1/2NS 520ml 520 ML IV PRN (20:20)
[2023-05-25] MEDS ORDERED: magnesium 4gm in 100ml NS 100 ML IV PRN (20:20)
[2023-05-25] MEDS ORDERED: acetaminophen 325mg tablet PO PRN (20:20)
[2023-05-25] MEDS ORDERED: magnesium 2GM in 50ml NS 50 ML IV PRN (20:20)
[2023-05-25] MEDS ORDERED: magnesium hydroxide 30ml (MOM) UD suspension PO PRN (20:20)
[2023-05-25] MEDS ORDERED: furosemide 10 MG/1 ML 10ml inj IV ONE (20:25)
[2023-05-25] MEDS ORDERED: ipratropium/albuterol 3ml nebule NEB PRN (20:30)
[2023-05-25 21:12] LABS: MAGNESIUM 2.4 MG/DL (1.5-2.4); POTASSIUM 3.9 MMOL/L (3.5-5.1)
[2023-05-25 21:16] LABS: APTT 28 SECONDS (22-32); PROTHROMBIN TIME 11.2 SECONDS (9.0-12.0)
[2023-05-25 21:27] LABS: MEAN CORPUSCULAR HGB CONC 28.9 g/dL (33.0-36.5); MEAN CORPUSCULAR VOLUME 69.3 FL (78-98); MEAN PLATELET VOLUME 6.9 FL (7.4-10.4); PLATELET COUNT 233 X10'3 (140-440); RED BLOOD COUNT 2.69 X10'6 (4.70-6.10); RED CELL DISTRIBUTION WIDTH 21.2 % (11.5-14.5); WHITE BLOOD COUNT 7.5 X10'3 (4.5-11.0)
[2023-05-25 21:32] LABS: HEMATOCRIT 18.7 % (42.0-52.0); HEMOGLOBIN 5.4 g/dl (14.0-17.9)
[2023-05-25 22:20] VITALS: BP 137/62; PULSE 75; RESP 20; TEMP 98.5; O2SAT 99
[2023-05-25 22:25] VITALS: PULSE 72; RESP 18; O2SAT 100
[2023-05-25 22:32] VITALS: PULSE 72; RESP 18
[2023-05-25 23:39] LABS: OCCULT BLOOD STOOL POSITIVE (Neg)
[2023-05-25 23:56] VITALS: BP 135/72; PULSE 78; RESP 20; TEMP 98.8
[2023-05-26] VITALS (26 sets, daily range): BP systolic 90–153; BP diastolic 51–77; PULSE 57–93; RESP 9–26; TEMP 97.4–99.8; O2SAT 92–100
[2023-05-26] MEDS: atenolol 50mg tablet PO SCH ×2 (00:35→09:45)
[2023-05-26 07:39] LABS: BASOPHILS # (AUTO) 0.1 X10'3 (0-0.2); EOSINOPHILS # (AUTO) 0.1 X10'3 (0-0.9); EOSINOPHILS % (AUTO) 1.7 % (0-6); HEMATOCRIT 25.1 % (42.0-52.0); HEMOGLOBIN 7.9 g/dl (14.0-17.9); LYMPHOCYTES # (AUTO) 1.3 X10'3 (1.1-4.8); LYMPHOCYTES % (AUTO) 18.2 % (21-51); MEAN CORPUSCULAR HEMOGLOBIN 23.4 PG (27.0-31.0); MEAN CORPUSCULAR HGB CONC 31.7 g/dL (33.0-36.5); MEAN CORPUSCULAR VOLUME 73.9 FL (78-98); MONOCYTES % (AUTO) 14.2 % (2-12); NEUTROPHILS # (AUTO) 4.7 X10'3 (1.8-7.7); NEUTROPHILS % (AUTO) 64.9 % (42-75); PLATELET COUNT 199 X10'3 (140-440); RED BLOOD COUNT 3.39 X10'6 (4.70-6.10); RED CELL DISTRIBUTION WIDTH 25.5 % (11.5-14.5); WHITE BLOOD COUNT 7.2 X10'3 (4.5-11.0)
[2023-05-26 07:50] LABS: % IRON SATURATION 57 % (11-46); IRON 219 UG/DL (53-167); TOTAL IRON BINDING CAPACITY 386 UG/DL (259-388)
[2023-05-26] MEDS ORDERED: enoxaparin 30mg/0.3ml syringe SQ SCH (08:00)
[2023-05-26] MEDS: K and/or MAG REPLACEMENT MC SCH ×2 (08:00→20:00)
[2023-05-26] MEDS: docusate sod 100mg capsule PO SCH ×2 (08:00→20:10)
[2023-05-26 08:25] LABS: ANION GAP 10 (8-16); BLOOD UREA NITROGEN 14 MG/DL (7-18); BUN/CREATININE RATIO 13.7 (10.0-20.0); CALCIUM 8.2 MG/DL (8.5-10.1); CHLORIDE 106 MMOL/L (99-107); CREATININE 1.02 MG/DL (0.60-1.10); FERRITIN 21 NG/ML (26-388); GLUCOSE 91 MG/DL (70-104); MAGNESIUM 2.2 MG/DL (1.5-2.4); POTASSIUM 3.5 MMOL/L (3.5-5.1); SODIUM 139 MMOL/L (135-145); TOTAL CARBON DIOXIDE 23.2 MMOL/L (24-32); eCRCL 61 ML/MIN; eGFR 71 ML/MIN
[2023-05-26] MEDS: pantoprazole 40 MG vial IV SCH ×2 (09:42→20:03)
[2023-05-26] MEDS: furosemide 10 MG/1 ML 10ml inj IV SCH ×2 (09:44→20:03)
[2023-05-26] MEDS ORDERED: LIDOcaine Viscous 15ml cup ONE (13:52)
[2023-05-26] MEDS ORDERED: MIDAZolam 1 MG/ML 5ML VIAL ONE (14:02)
[2023-05-26] MEDS ORDERED: fentaNYL/PF 50MCG/1 ML 2ML syringe ONE (14:02)
[2023-05-26] MEDS: sodium ferric gluc complex inj 125 MG in normal saline 100ml IV soln 100 ML IV SCH (16:04)
[2023-05-27 02:00] VITALS: BP 147/66; PULSE 69; RESP 16; TEMP 98.3; O2SAT 93
[2023-05-27 06:00] VITALS: BP 126/76; PULSE 61; RESP 16; TEMP 97.7; O2SAT 98
[2023-05-27 07:19] LABS: BASOPHILS # (AUTO) 0.1 X10'3 (0-0.2); BASOPHILS % (AUTO) 0.8 % (0-1); EOSINOPHILS # (AUTO) 0.1 X10'3 (0-0.9); EOSINOPHILS % (AUTO) 2.1 % (0-6); HEMATOCRIT 24.3 % (42.0-52.0); HEMOGLOBIN 7.6 g/dl (14.0-17.9); LYMPHOCYTES # (AUTO) 1.4 X10'3 (1.1-4.8); LYMPHOCYTES % (AUTO) 21.4 % (21-51); MEAN CORPUSCULAR HEMOGLOBIN 23.1 PG (27.0-31.0); MEAN CORPUSCULAR HGB CONC 31.3 g/dL (33.0-36.5); MEAN CORPUSCULAR VOLUME 73.8 FL (78-98); MONOCYTES # (AUTO) 0.9 X10'3 (0-0.9); MONOCYTES % (AUTO) 13.7 % (2-12); NEUTROPHILS # (AUTO) 4.2 X10'3 (1.8-7.7); PLATELET COUNT 180 X10'3 (140-440); RED BLOOD COUNT 3.29 X10'6 (4.70-6.10); RED CELL DISTRIBUTION WIDTH 25.8 % (11.5-14.5); WHITE BLOOD COUNT 6.7 X10'3 (4.5-11.0)
[2023-05-27 07:43] LABS: ALBUMIN 2.8 G/DL (3.4-5.0); ANION GAP 9 (8-16); BLOOD UREA NITROGEN 12 MG/DL (7-18); BUN/CREATININE RATIO 12.5 (10.0-20.0); CALCIUM 8.2 MG/DL (8.5-10.1); CHLORIDE 106 MMOL/L (99-107); CREATININE 0.96 MG/DL (0.60-1.10); GLUCOSE 85 MG/DL (70-104); MAGNESIUM 2.2 MG/DL (1.5-2.4); POTASSIUM 3.3 MMOL/L (3.5-5.1); SODIUM 139 MMOL/L (135-145); TOTAL CARBON DIOXIDE 24.1 MMOL/L (24-32); eCRCL 65 ML/MIN; eGFR 76 ML/MIN
[2023-05-27] MEDS: K and/or MAG REPLACEMENT MC SCH (08:00)
[2023-05-27 08:15] VITALS: RESP 16; O2SAT 98
[2023-05-27] MEDS: pantoprazole 40 MG vial IV SCH (08:15)
[2023-05-27] MEDS: docusate sod 100mg capsule PO SCH (08:17)
[2023-05-27] MEDS: furosemide 10 MG/1 ML 10ml inj IV SCH (08:17)
[2023-05-27] MEDS: atenolol 50mg tablet PO SCH (08:18)
[2023-05-27 09:08] VITALS: PULSE 63; RESP 18; O2SAT 97
[2023-05-27] MEDS: potassium Cl 20 mEq SR tablet PO PRN ×2 (10:03→12:56)
[2023-05-27] MEDS: sodium ferric gluc complex inj 125 MG in normal saline 100ml IV soln 100 ML IV SCH (10:04)
[2023-05-27 11:00] VITALS: BP 131/63; PULSE 67; RESP 18; TEMP 98.1; O2SAT 100
[2023-05-27] MEDS ORDERED: PANT-47 PO (11:24)
[2023-05-27] MEDS ORDERED: FERR324T4 PO (11:25)
[2023-05-27 11:31] LABS: ANISOCYTOSIS 3+; HYPOCHROMASIA 1+; MICROCYTOSIS 1+; PLATELET ESTIMATE NORMAL; POLYCHROMASIA FEW; TARGET CELLS FEW
[2023-05-27 11:32] LABS: ELLIPTOCYTES FEW; STOMATOCYTES 1+
== END 2023-05-27 16:35 | disposition home or self-care (01) | DRG 377 ==
LOC: ER 14:51 → ED HOLD 20:24 → UNDOADMIN 20:24 → PCU 3S 22:22 → ED HOLD 22:22 → UNDODISIN 05-27 16:35
PROVIDERS: ADMIT Family Medicine; ATTEND Family Medicine
PROC: 0DB68ZX Excision of Stomach, Via Natural or Artificial Opening Endoscopic, Diagnostic (ICD-10-PCS; principal; 2023-05-26)
PROC: 30233N1 Transfusion of Nonautologous Red Blood Cells into Peripheral Vein, Percutaneous Approach (ICD-10-PCS; 2023-05-26)
DX: K26.0 Acute duodenal ulcer with hemorrhage (principal); I50.33 Acute on chronic diastolic (congestive) heart failure; D62 Acute posthemorrhagic anemia; K31.9 Disease of stomach and duodenum, unspecified; I11.0 Hypertensive heart disease with heart failure; K31.89 Other diseases of stomach and duodenum; E78.00 Pure hypercholesterolemia, unspecified; I73.9 Peripheral vascular disease, unspecified; Z20.822 Contact with and (suspected) exposure to COVID-19; I25.10 Atherosclerotic heart disease of native coronary artery without angina pectoris; T39.395A Adverse effect of other nonsteroidal anti-inflammatory drugs [NSAID], initial encounter; Y92.89 Other specified places as the place of occurrence of the external cause; Z79.02 Long term (current) use of antithrombotics/antiplatelets; Z79.82 Long term (current) use of aspirin; Z79.899 Other long term (current) drug therapy; Z95.5 Presence of coronary angioplasty implant and graft; Z85.51 Personal history of malignant neoplasm of bladder; K29.61 Other gastritis with bleeding
CPT/HCPCS: 36415; 36430; 43239; 71045; 80048; 80053; 82272; 82728; 83540; 83550; 83605; 83735; 83880; 84132; 84145; 84484; 85008; 85025; 85027; 85610; 85730; 86885; 86900; 86901; 86920; 87040; 87081; 87502; 87503; 87811; 93005; 93306; 93971; 94640; 94760; 97116; 97161; 97530; 99152; 99285; A4615; A4620; C9113; G0378; J1940; J2250; J2916; J3010; J3490; J7030; J7040; P9016